=== PATIENT | male | born 1995 | race Caucasian/White ===

== ENCOUNTER 2016-11-08 04:13 | Emergency (ER) | payer BC ==
[2016-11-08 04:57] LABS: AMPHETAMINE QUAL UR NONE DETECTED (NEG <=1000)
[2016-11-08 06:09] VITALS: BP 124/72
== END 2016-11-08 06:09 | disposition home or self-care (01) ==
LOC: ED 04:13
PROVIDERS: Emergency Medicine
DX: T78.3XXA Angioneurotic edema, initial encounter (principal); R22.0 Localized swelling, mass and lump, head; H57.8 Other specified disorders of eye and adnexa; F12.10 Cannabis abuse, uncomplicated; V89.2XXA Person injured in unspecified motor-vehicle accident, traffic, initial encounter; Y93.89 Activity, other specified; Y92.89 Other specified places as the place of occurrence of the external cause; Y99.8 Other external cause status
CPT/HCPCS: 82962; J0171; J7512

== ENCOUNTER 2017-05-13 13:54 | Emergency (ER) | payer BC ==
[~2017-05-13] VITALS: Ht 180.3 cm; Wt 119.7 kg
[2017-05-13 14:18] VITALS: BP 129/81; Ht 180.3 cm; Wt 119.7 kg
== END 2017-05-13 15:49 | disposition left against medical advice (07) ==
LOC: ED 13:54
DX: Z53.21 Procedure and treatment not carried out due to patient leaving prior to being seen by health care provider (principal)